=== PATIENT | male | born 1970 | race Caucasian/White ===

== ENCOUNTER 2017-06-15 05:49 | Inpatient (IN) | payer OTHER, MEDICAID ==
[2017-06-15] MEDS ORDERED: NS 1,000 ML IV ONE ×2 (06:14→06:24)
--- NOTE | 2017-06-15 06:20 | EDPHY ---
H & P Stated Complaint: cough/fever/ST x 3 weeks HPI/ROS: HPI CHIEF COMPLAINT: Cough, shortness of breath, fever x3 weeks HISTORY OF PRESENT ILLNESS: This patient is a 46-year-old male, history of fibromyalgia osteoporosis ankylosing spondylitis and GERD also takes chronic pain medicine he presents to the emergency room with 2-3 weeks of not feeling well however worse over the past 24-48 hours. He reports to me he has been more short of breath he has been coughing up yellow sputum. He noticed a fever at home T-max a 103degrees. He denies any chest pain. He does endorse back pain and bilateral hip pain worse with coughing. When he coughs extreme he does have post tussis emesis. His main complaint is muscle aches joint pain cough with yellow productive sputum sore throat. Upon arrival to the emergency room it is noted that he is dehydrated. Tachycardic. Febrile. And slightly hypoxic. Tachypneic. Past Medical History: Ankylosing spondylitis, osteoporosis, GERD, chronic pain , fibromyalgia Past Surgical History: No recent surgery Social History: Denies daily use drugs alcohol tobacco products. Family History: Noncontributory ROS REVIEW OF SYSTEMS: A comprehensive 10 point review of systems is otherwise negative aside from elements mentioned in the history of present illness. Exam Constitutional triage nursing summary reviewed, vital signs reviewed, awake/ alert. Vital signs noted. Abnormal. Eyes normal conjunctivae and sclera, EOMI, PERRLA. HENT posterior pharynx is erythematous but no significant exudate, dry, atraumatic, dry mucous membrane no epistaxis, neck supple/ no meningismus, no raccoon eyes. Respiratory clear to auscultation bilaterally, normal breath sounds, no respiratory distress, no wheezing. Cardiovascular tachycardic, regular rhythm, no murmur, no edema, distal pulses normal. Gastrointestinal soft, non-tender, no rebound, no guarding, normal bowel sounds, no distension, no pulsatile mass. Genitourinary no CVA tenderness. Musculoskeletal no midline vertebral tenderness, full range of motion, no calf swelling, no tenderness of extremities, no meningismus, good pulses, neurovascularly intact. Skin pink, warm, & dry, no rash, skin atraumatic. Neurologic awake, alert and oriented x 3, AAOx3, moves all 4 extremities equally, motor intact, sensory intact, CN II-XII intact, normal cerebellar, normal vision, normal speech. Psychiatric normal mood/affect. Heme/Lymph/Immune no lymphadenopathy. Differential Diagnosis: Includes but is not limited to in a particular order: Sepsis, bacteremia, dehydration, pneumonia, strep pharyngitis, influenza Medical Decision Making: Plan for this patient 2 L fluid bolus normal saline, full cardiac cath tech, blood cultures, lactic acid, strep test, influenza, chest x-ray two view to rule pneumonia. Re-evaluation: ED x-ray chest two view: This shows a right upper lobe and right middle lobe pneumonia. Dense consolidation. This explains his fever, hypoxia tachycardia. His blood work is pending at this time. I have ordered IV vancomycin IV Zosyn. Broad-spectrum antibiotics. Blood cultures. 2 L fluid bolus. Patient be admitted to the hospital for sepsis, pneumonia, tachycardia, fever, hypoxia. [id number]: Patient's chest x-ray two view reviewed. Dense consolidation right middle lobe and right upper lobe. Source: Patient - Personal History Current Tetanus/Diphtheria Vaccine: Yes - Medical/Surgical History Hx Asthma: No Hx Chronic Respiratory Disease: No Hx Diabetes: No Hx Cardiac Disease: No Hx Renal Disease: No Hx Cirrhosis: No Hx Alcoholism: No Hx HIV/AIDS: No Hx Splenectomy or Spleen Trauma: No Other PMH: PMHx: osteoporosis, vancolosing spondilitis, gerd, fibromyalgia, chronic pain. PSHx: hernia, adenoids, tonsillectomy, deviated septum repair, eyelid surgery - Social History Smoking Status: Former smoker Constitutional: Initial Vital Signs Temperature (C) 39.4 C H 06/15/17 05:55 Heart Rate 111 H 06/15/17 05:55 Respiratory Rate 24 H 06/15/17 05:55 Blood Pressure 113/63 06/15/17 05:55 O2 Sat (%) 91 L 06/15/17 05:55 O2 Delivery Mode Room Air Allergies/Adverse Reactions: duloxetine HCl [From Cymbalta] Allergy (Verified 06/15/17 09:22) Home Medications: Medication Instructions Recorded Cholecalciferol Vit D3 [Vitamin D3 1,000 units PO DAILY 06/15/17 (*)] Cyanocobalamin [Vitamin B12 1,000 mcg IM Q30D 06/15/17 1000MCG/ML (*)] Diazepam [Valium 10 MG (*)] 10 mg PO HS PRN 06/15/17 Esomeprazole Mag Trihydrate 40 mg PO BID PRN 06/15/17 [Nexium] HYDROcodone/APAP 10325 [[place] 1 tab PO Q6 PRN 06/15/17 10325 (*)] Herbals/Supplements -Info Only 1 ea PO DAILY 06/15/17 Secukinumab [Cosentyx Syringe] 150 mg SQ Q28D 06/15/17 celeCOXIB [Celebrex (*)] 200 mg PO DAILY 06/15/17 diphenhydrAMINE [Benadryl 50 MG 50 mg PO DAILY PRN 06/15/17 (*)] oxyCODONE IR [Oxycodone Ir (*)] 15 mg PO TID PRN 06/15/17 traZODone [traZODONE 50MG (*)] 50 - 150 mg PO HS PRN 06/15/17 Medical Decision Making - Data Points Laboratory Results: Laboratory Results 06/15/17 06:38 06/15/17 06:38 Microbiology Results: MICROBIOLOGY 06/15/17 06:38 Blood Blood Culture - Preliminary 06/15/17 06:40 Blood Blood Culture - Preliminary Medications Given: Hydrocodone Bitart/Acetaminophen ([place] 10/325) 1 tab PO Q4 PRN PRN Reason: Pain, Breakthrough Stop: 06/25/17 13:23 Last Admin: 06/16/17 18:24 Dose: 1 tab Celecoxib (Celebrex) 200 mg PO DAILY [facility] Stop: 12/12/17 13:29 Last Admin: 06/16/17 10:01 Dose: 200 mg Cholecalciferol (Vitamin D) 1,000 units PO DAILY [facility] Stop: 12/12/17 13:29 Last Admin: 06/16/17 08:21 Dose: 1,000 units Diazepam (Valium) 10 mg PO HS PRN PRN Reason: sleep/anxiety Stop: 12/12/17 13:23 Last Admin: 06/15/17 22:31 Dose: 10 mg Diphenhydramine HCl (Benadryl) 50 mg PO DAILY PRN PRN Reason: allergies Stop: 12/12/17 13:23 Last Admin: 06/15/17 22:49 Dose: 50 mg Guaifenesin (Mucinex) 1,200 mg PO BID [facility] Stop: 12/12/17 08:29 Last Admin: 06/16/17 21:39 Dose: 1,200 mg Ceftriaxone Sodium/Dextrose (Rocephin 1 Gm (Premix)) 50 mls @ 100 mls/hr IV DAILY [facility] PRN Reason: Protocol Stop: 07/15/17 16:29 Last Admin: 06/16/17 09:54 Dose: 50 mls Metronidazole/Sodium Chloride (Flagyl 500 Mg (Premix)) 100 mls @ 100 mls/hr IV Q8HRS [facility] PRN Reason: Protocol Stop: 07/15/17 16:14 Last Admin: 06/16/17 21:38 Dose: 100 mls Oxycodone HCl (Oxycodone Ir) 15 mg PO TID PRN PRN Reason: Pain, Severe Stop: 06/25/17 13:23 Last Admin: 06/16/17 21:38 Dose: 15 mg Pantoprazole Sodium (Protonix) 40 mg PO BID PRN PRN Reason: Reflux Stop: 12/12/17 13:29 Last Admin: 06/15/17 20:26 Dose: 40 mg Discontinued Medications Acetaminophen (Tylenol) 1,000 mg PO EDNOW ONE Stop: 06/15/17 06:30 Last Admin: 06/15/17 07:18 Dose: Not Given Hydrocodone Bitart/Acetaminophen ([place] 10/325) 1 tab PO Q6 PRN PRN Reason: Pain, Breakthrough Stop: 06/25/17 13:23 Last Admin: 06/16/17 14:33 Dose: 1 tab Enoxaparin Sodium (Lovenox) 40 mg SC DAILY [facility] Stop: 12/12/17 08:59 Last Admin: 06/15/17 10:18 Dose: 40 mg Hydromorphone HCl (Dilaudid) 1 mg IVP EDNOW ONE Stop: 06/15/17 06:25 Last Admin: 06/15/17 06:45 Dose: 1 mg Sodium Chloride (Ns) 1,000 mls @ 0 mls/hr IV EDNOW ONE; Wide Open PRN Reason: Protocol Stop: 06/15/17 06:15 Last Admin: 06/15/17 06:46 Dose: 1,000 mls Sodium Chloride (Ns) 1,000 mls @ 0 mls/hr IV ONCE ONE PRN Reason: Wide Open Stop: 06/15/17 06:25 Last Admin: 06/15/17 07:30 Dose: 1,000 mls Vancomycin/Sodium Chloride (Vancomycin 1 Gm (Premix)) 250 mls @ 250 mls/hr IV EDNOW ONE PRN Reason: Protocol Stop: 06/15/17 07:34 Last Admin: 06/15/17 08:14 Dose: 250 mls Piperacillin/Tazobactam/Dextrose (Zosyn (Premix)) 100 mls @ 200 mls/hr IV EDNOW ONE PRN Reason: Protocol Stop: 06/15/17 07:04 Last Admin: 06/15/17 07:14 Dose: 100 mls Sodium Chloride (Ns) 1,000 mls @ 150 mls/hr IV CONT [facility] Stop: 12/12/17 08:29 Last Admin: 06/16/17 17:36 Dose: 1,000 mls Ibuprofen (Motrin) 600 mg PO EDNOW ONE Stop: 06/15/17 06:39 Last Admin: 06/15/17 06:48 Dose: 600 mg Departure - Departure Disposition: [facility] Inpatient Acute Clinical Impression: Pneumonia Qualifiers: Pneumonia type: due to unspecified organism Laterality: right Lung location: middle lobe of lung Qualified Code(s): J18.1 - Lobar pneumonia, unspecified organism Condition: Serious
[2017-06-15] MEDS ORDERED: HYDROmorphONE/DILAUDID 1 MG/ML INJ IVP ONE (06:24)
[2017-06-15] MEDS ORDERED: ACETAMINOPHEN 500 MG TAB PO ONE (06:29)
[2017-06-15] MEDS ORDERED: VANCOMYCIN HCL/NORMAL SALINE 250 ML IV ONE (06:35)
[2017-06-15] MEDS ORDERED: PIPERACILLIN/TAZO 4.5 GM/DEX 100 ML IV ONE (06:35)
[2017-06-15] MEDS ORDERED: IBUPROFEN 600 MG TAB PO ONE (06:38)
[2017-06-15 06:55] LABS: ADD DIFF? YES; ADD MORPH? NO; ATYPICAL LYMPHOCYTE FLAG 10 (0-99); FRAGMENT RBC FLAG 0 (0-99); HEMATOCRIT 35.8 % (40.0-51.0); LEFT SHIFT FLG 10 (0-99); LIPEMIA HEMOLYSIS FLAG 80 (0-99); MEAN CELL HEMOGLOBIN 29.1 pg (27.9-34.1); MEAN CELL HEMOGLOBIN CONCENTR. 33.5 g/dL (32.4-36.7); MEAN CELL VOLUME 86.7 fL (81.5-99.8); MEAN PLATELET VOLUME 9.9 fL (8.7-11.7); PLATELET CLUMPS FLAG 0 (0-99); PLATELET COUNT 737 10^3/uL (150-400); RED BLOOD CELL COUNT 4.13 10^6/uL (4.40-6.38); RED CELL DISTRIBUTION WIDTH 13.9 % (11.5-15.2)
[2017-06-15 06:59] LABS: ADD SCAN? NO
[2017-06-15 07:28] LABS: PLATELET ESTIMATE INCREASED (ADEQ)
[2017-06-15 07:29] LABS: ANION GAP 13 mEq/L (8-16); CALCIUM 9.1 mg/dL (8.5-10.4); CARBON DIOXIDE 21 mEq/l (22-31); CHLORIDE 101 mEq/L (97-110); CREATININE 0.7 mg/dL (0.7-1.3); GLOMERULAR FILTRATION RATE > 60; GLUCOSE 109 mg/dL (70-100); POTASSIUM 4.1 mEq/L (3.5-5.2); SODIUM 135 mEq/L (134-144)
[2017-06-15] MEDS ORDERED: IOPAMIDOL (ISOVUE-300) 100 ML BTL ONE (08:22)
[2017-06-15] MEDS ORDERED: ONDANSETRON DISINTEGRATING 4 MG TAB PO PRN (08:23)
[2017-06-15] MEDS ORDERED: ACETAMINOPHEN 325 MG TAB PO PRN (08:23)
[2017-06-15] MEDS ORDERED: ONDANSETRON 4 MG/2 ML VIAL IVP PRN (08:23)
[2017-06-15] MEDS ORDERED: guaiFENesin/CODEINE PHOS 10 ML UDCUP PO PRN (08:25)
[2017-06-15] MEDS ORDERED: ENOXAPARIN 40 MG/0.4 ML SYR SC SCH (09:00)
[2017-06-15] MEDS: guaiFENesin 600 MG TAB.ER PO SCH ×3 (10:19→20:25)
[2017-06-15] MEDS ORDERED: NON-FORMULARY NEW DRUG (Esomeprazole Mag Trihydrate [Nexium] 40 MG) PO PRN (13:24)
[2017-06-15] MEDS ORDERED: diphenhydrAMINE 50 MG CAP PO PRN (13:24)
[2017-06-15] MEDS ORDERED: traZODone 50 MG TAB PO PRN (13:24)
[2017-06-15] MEDS ORDERED: DIAZEPAM 10 MG TAB PO PRN (13:24)
[2017-06-15] MEDS: HYDROCODONE/APAP 10/325 TAB PO PRN ×2 (13:53→20:25)
[2017-06-15] MEDS: CHOLECALCIFEROL VIT D3 1,000 UNITS TAB PO SCH (13:54)
--- NOTE | 2017-06-15 14:42 | PDGENHP ---
History and Physical - Chief Complaint Acute cough - History of Present Illness Primary care provider: Dr. Shawn Feng HPI: 46-year-old male presents with acute cough characterized as productive with yellow sputum and associated with shortness of breath myalgias. He reports onset of symptoms weeks ago, and acute worsening over the past 24-48 hours. His fever has been documented as 103 degrees at home. He reports several episodes of nonbloody emesis, exacerbated by his coughing. He has presented to urgent care, and received Tylenol, but no imaging or antibiotics. Reports that over the last 6 weeks he has experienced an approximately 15 lb weight loss, unintentional. His bowel movements have otherwise been normal, with 1 episode of diarrhea, without any change in color or consistency. History Information - Allergies/Home Medication List Allergies/Adverse Reactions: duloxetine HCl [From Cymbalta] Allergy (Verified 06/15/17 09:22) Home Medications: Cholecalciferol Vit D3 [Vitamin D3 (*)] 1,000 units PO DAILY 06/15/17 [Last Taken Unknown] Cyanocobalamin [Vitamin B12 1000MCG/ML (*)] 1,000 mcg IM Q30D 06/15/17 [Last Taken 05/31/17] Diazepam [Valium 10 MG (*)] 10 mg PO HS PRN 06/15/17 [Last Taken Unknown] Esomeprazole Mag Trihydrate [Nexium] 40 mg PO BID PRN 06/15/17 [Last Taken 06/14] HYDROcodone/APAP 10/325 [[place] 10/325 (*)] 1 tab PO Q6 PRN 06/15/17 [Last Taken 06/14/17] Herbals/Supplements -Info Only 1 ea PO DAILY 06/15/17 [Last Taken Unknown] Secukinumab [Cosentyx Syringe] 150 mg SQ Q28D 06/15/17 [Last Taken 05/23/17] celeCOXIB [Celebrex (*)] 200 mg PO DAILY 06/15/17 [Last Taken 06/14/17] diphenhydrAMINE [Benadryl 50 MG (*)] 50 mg PO DAILY PRN 06/15/17 [Last Taken Unknown] oxyCODONE IR [Oxycodone Ir (*)] 15 mg PO TID PRN 06/15/17 [Last Taken Unknown] traZODone [traZODONE 50MG (*)] 50 - 150 mg PO HS PRN 06/15/17 [Last Taken Unknown] I have personally reviewed and updated: family history, medical history, social history, surgical history - Past Medical History Additional medical history: Fibromyalgia. Osteoporosis with ankylosing spondylitis. Chronic pain with continuous opiate dependency. Gastroesophageal reflux disease. Pneumonia approximately 2 years ago - Surgical History Additional surgical history: No prior chest surgeries - Family History Additional family history: No family history of pulmonary issues, father did recently have venous thromboembolism secondary to a DVT - Social History Smoking Status: Former smoker Alcohol Use: None Drug Use: None Additional social history: Independent in his ADLs Review of Systems Review of Systems: ROS: 10pt was reviewed & negative except for what was stated in HPI & below Constitutional: Reports: fever, malaise, weight loss Respiratory: Reports: cough, shortness of breath Muscolosketal: Reports: muscle pain Physical Exam Physical Exam: Temp Pulse Resp BP Pulse Ox 37.1 C 84 19 111/61 94 06/15/17 09:59 06/15/17 09:59 06/15/17 09:59 06/15/17 09:59 06/15/17 09:59 Constitutional: no apparent distress, not in pain, chronically ill appearing, No uncomfortable Eyes: PERRL, anicteric sclera, EOMI Ears, Nose, Mouth, Throat: moist mucous membranes, hearing normal, ears appear normal, no oral mucosal ulcers Cardiovascular: regular rate and rhythym, no murmur, rub, or gallop, No edema Respiratory: reduced air movement (Right mid posterior upper segment with positive egophony), rhonchi (Right-sided posteriorly), No expiratory wheeze, No bronchial breath sounds Gastrointestinal: normoactive bowel sounds, soft, non-tender abdomen, no palpable masses Skin: warm, normal color, no rashes or abrasions, no fluctuance, no induration, No mottled Neurologic: AAOx3, sensation intact bilaterally, No weakness (Motor strength 5/ 5 bilaterally) Psychiatric: not anxious, not encephalopathic, flat affect, No agitated Lymph, Heme, Immunologic: other (Palpable 1 cm submandibular lymph nodes without any tenderness, no posterior cervical lymphadenopathy, no supraclavicular lymphadenopathy) Lab Data & Imaging Review 06/15/17 06:38 06/15/17 06:38 WBC 30.10 10^3/uL (3.80-9.50) H 06/15/17 06:38 RBC 4.13 10^6/uL (4.40-6.38) L 06/15/17 06:38 Hgb 12.0 g/dL (13.7-17.5) L 06/15/17 06:38 Hct 35.8 % (40.0-51.0) L 06/15/17 06:38 MCV 86.7 fL (81.5-99.8) 06/15/17 06:38 MCH 29.1 pg (27.9-34.1) 06/15/17 06:38 MCHC 33.5 g/dL (32.4-36.7) 06/15/17 06:38 RDW 13.9 % (11.5-15.2) 06/15/17 06:38 Plt Count 737 10^3/uL (150-400) H 06/15/17 06:38 MPV 9.9 fL (8.7-11.7) 06/15/17 06:38 Neut % (Auto) Not Reported 06/15/17 06:38 Lymph % (Auto) Not Reported 06/15/17 06:38 [place] % (Auto) Not Reported 06/15/17 06:38 Eos % (Auto) Not Reported 06/15/17 06:38 Baso % (Auto) Not Reported 06/15/17 06:38 Nucleat RBC Rel Count 0.0 % (0.0-0.2) 06/15/17 06:38 Absolute Neuts (auto) Not Reported 06/15/17 06:38 Absolute Lymphs (auto) Not Reported 06/15/17 06:38 Absolute Monos (auto) Not Reported 06/15/17 06:38 Absolute Eos (auto) Not Reported 06/15/17 06:38 Absolute Basos (auto) Not Reported 06/15/17 06:38 Absolute Nucleated RBC 0.00 10^3/uL (0-0.01) 06/15/17 06:38 Immature Gran % Not Reported 06/15/17 06:38 Seg Neutrophils % 83 % 06/15/17 06:38 Band Neutrophils % 2 % 06/15/17 06:38 Lymphocytes % 6 % 06/15/17 06:38 Monocytes % 8 % 06/15/17 06:38 Eosinophils % 1 % 06/15/17 06:38 Immature Gran # Not Reported 06/15/17 06:38 Absolute Seg Neuts 24.98 10^/uL (1.70-6.50) H 06/15/17 06:38 Absolute Band Neuts 0.60 10^3/uL (0.00-0.70) 06/15/17 06:38 Absolute Lymphocytes 1.81 10^3/uL (1.00-3.00) 06/15/17 06:38 Absolute Monocytes 2.41 10^3/uL (0.30-0.80) H 06/15/17 06:38 Absolute Eosinophils 0.30 10^3/uL (0.03-0.40) 06/15/17 06:38 Platelet Estimate INCREASED (ADEQ) H 06/15/17 06:38 Smear Review By Chloe AVALOS MD 06/15/17 06:38 VBG Lactic Acid 0.9 mmol/L (0.7-2.1) 06/15/17 06:38 Sodium 135 mEq/L (134-144) 06/15/17 06:38 Potassium 4.1 mEq/L (3.5-5.2) 06/15/17 06:38 Chloride 101 mEq/L (97-110) 06/15/17 06:38 Carbon Dioxide 21 mEq/l (22-31) L 06/15/17 06:38 Anion Gap 13 mEq/L (8-16) 06/15/17 06:38 BUN 12 mg/dL (7-23) 06/15/17 06:38 Creatinine 0.7 mg/dL (0.7-1.3) 06/15/17 06:38 Estimated GFR > 60 06/15/17 06:38 Glucose 109 mg/dL (70-100) H 06/15/17 06:38 Calcium 9.1 mg/dL (8.5-10.4) 06/15/17 06:38 Influenza A & B (PCR) NEGATIVE FOR FLU (NEGATIVE) 06/15/17 10:37 Visualized and Interpreted imaging results: Yes Interpretation: Chest CT demonstrating right upper lobe consolidation with either a mass or abscess, and surrounding dense airspace disease Assessment & Plan Assessment: 46-year-old male presents with acute pneumonia in the setting of possible pulmonary abscess Plan: 1. Pneumonia. Acute, new problem this provider, further workup indicated. Unclear whether patient developed pneumonia and then resulting pulmonary abscess , or whether he has underlying pulmonary malignancy and subsequent postobstructive pneumonia -he has received IV ceftriaxone and azithromycin in the emergency department, will continue -will tailor antibiotics under the guidance of Infectious Disease -sputum culture sent, blood culture sent, group a strep pending, urine strep pending 2. Possible pulmonary abscess. Evidenced by chest CT findings with air level, concern for abscess, with white blood cell count [id number] -patient has known bronchiectasis in the right lower lobe with known pulmonary nodules in the right lower lobe and right upper lobe, per review of outside records including 05/13/[address], placing him at possible risk for underlying malignancy -contacted Dr. Nelson Guadarrama, getting surgical evaluation for biopsy and aspirate, unclear whether we will do this via VATS versus Interventional Radiology -will make NPO after midnight -discussed with Dr. Ana M Ibanez, appreciate consultation 3. Chronic pain with continuous opiate dependency. Continue patient's home pain medications for ankylosing spondylitis and fibromyalgia Diet. Regular, NPO after midnight Prophylaxis. High risk patient, SCDs, hold pharmacologic prophylaxis given possible biopsy Code. Full per patient, the patient does not wish to have any person as his medical power of associate attorney, he wishes for his medical team to follow hospital policies regarding proxy if he is unable to communicate his medical decisions Disposition. Anticipated discharge uncertain this time, anticipated length stay greater than 48 hours warranting inpatient hospitalization for acute pneumonia and possible pulmonary abscess requiring surgical intervention as outlined above. I have discussed patient's presentation with Darline Hedrick, hospitalist provider, she has signed out this patient for me for evaluation.
[2017-06-15] MEDS: NS 1,000 ML IV SCH (16:44)
[2017-06-15] MEDS: PANTOPRAZOLE SODIUM 40 MG TAB PO PRN (20:26)
--- NOTE | 2017-06-15 21:32 | GCON ---
[f rep st] CONSULTATION INFECTIOUS DISEASE CONSULTATION DATE OF CONSULTATION: 06/15/2017 REASON FOR CONSULTATION: Management and evaluation of cavitary pneumonia. HISTORY OF PRESENT ILLNESS: A 46-year-old male with a past medical history of ankylosing spondylitis, currently on Cosentyx, who was in his usual state of health until 3-6 weeks ago when he developed progressive shortness of breath, cough, yellow sputum with occasional hemoptysis. His shortness of breath and cough became acutely worse and patient presented to the emergency room for further evaluation. In the emergency room, patient was found to have relatively stable hemodynamics, but imaging revealed a right upper lobe consolidation with associated cavitary lesion, notably severe consolidation. 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 This occurred approximately 16 years ago, and patient reports receiving 6 months of isoniazid. The patient was getting testing for initiation of therapy for Enbrel at the time. In addition, patient has not had any recent travel. Last travel was in 2000 to [place]. He grew up in [facility] and moved to [place] in 1997. He currently has no pets. He does not use hot tubs. He does not use alcohol and has been on a stable narcotics dose. He has not seen a dentist in over 16 years, but denies any specific tooth pain. REVIEW OF SYSTEMS: A complete 10-point review of systems was performed and is negative except as mentioned in the HPI or below. The patient has had a significant decreased appetite and a 10-15 pounds weight loss, approximately over 3 weeks. He has been having drenching night sweats in which he has to change his clothes. No gastrointestinal symptoms. No headache. No dental pain. No rash. ALLERGIES: Cymbalta makes him aggressive. MEDICATIONS: The patient received a dose of IV Zosyn and vancomycin in the emergency room. HOME MEDICATIONS: Include Cosentyx, last dose was the 12th of last month, celecoxib, Benadryl, [place], Nexium, Valium, B12, vitamin D3, oxycodone IR and trazodone. PAST MEDICAL HISTORY: Fibromyalgia, ankylosing spondylitis, osteoporosis, chronic pain with continuous opiate dependency, gastroesophageal reflux disease , pneumonia in the winter of 2014. FAMILY HISTORY: Denies family history of tuberculosis or other pulmonary diseases. Family history of DVT. SOCIAL HISTORY: The patient is single. Was living in [place], but recently moved back to [place]. He is a former smoker. No alcohol or drug use. PHYSICAL EXAM: VITAL SIGNS: Temperature 37, pulse 84, respiratory rate 19, blood pressure 111/61, pulse ox 94% on room air. GENERAL: This is a chronically ill-appearing male, sitting up in bed, conversational, no acute distress. HEENT: Pupils are reactive bilaterally. Extraocular muscles were intact. No conjunctival hemorrhages. No jaundice. Moist mucous membranes. No oral ulcerations or exudates. Fair dentition. No obvious dental caries. NECK: Patient had no notable lymphadenopathy. CARDIOVASCULAR: Regular rate and rhythm. No murmurs. CHEST: Patient without accessory muscle use. He had decreased breath sounds and crackles in the right mid lung field. No wheeze. GI: Abdomen was soft, nontender. Bowel sounds are present. No palpable mass. SKIN: No rash. NEUROLOGICAL: He is alert and oriented x4. No weakness. PSYCHIATRIC: He was cooperative, conversational. LABORATORY DATA: White count is 30,000, hematocrit 35, platelets are 737, creatinine 0.7. The patient had 83% neutrophils. Chest CT showed a dense right upper lobe consolidation with cavitation. Micro blood cultures, sputum culture, and sputum AFB are all pending. Influenza PCR was negative. IMPRESSION: This is a 46-year-old male with chronic immune compromise due to Cosentyx for ankylosing spondylitis and a remote history of a positive PPD status post INH, who presents with subacute pneumonia with severe radiologic abnormalities and marked leukocytosis, but stable vital signs with normal oxygenation. Additional laboratory findings included thrombocytosis also likely related to subacute infection. Pneumonia with possible abscess. Patient with minimal dental care - although no obvious dental caries but this certainly puts him at risk for aspiration pneumonia and chronic anaerobic lung infection. Also could consider other etiologies such as staph necrotizing pneumonia with abscess. With underlying immune compromise, certainly other etiologies such as mycobacteria including tuberculosis and fungal etiologies within the realm of consideration. We will continue to follow up on sputum cultures and appreciate Pulmonary involvement for bronchoscopy tomorrow when AFB , fungal, and standard cultures will be collected. Additionally, could consider underlying malignancy, although clinical appearance radiologically makes this seem unlikely. Dr Salazar suggested sending ANCAs to evaluate for underlying vasculitis. TIME: 75 minutes with greater than 50% time spent with education and counseling of the patient regarding differential diagnosis, coordination of care with Dr. Lee and Dr. Salazar. We will continue to follow this patient on a daily basis. Thank you for this consultation. /[id number]/MODL RAYMON
--- NOTE | 2017-06-15 21:53 | SOAPPROG ---
SOAP Progress Note Assessment/Plan: Assessment: ASKED TO SEE 46-YEAR-OLD MALE WITH RIGHT UPPER LOBE MASS LESION WHICH MAY BE NECROTIC PNEUMONIA. HE HAS BEEN HAVING PAIN FEVER AND CHILLS ON THAT SIDE AND COUGHING UP DISCOLORED FLUID. HE IS A SMOKER BUT DENIES ANY WEIGHT LOSS OR HEMOPTYSIS CHEST X-RAY AND CT SCAN REVEAL A SIGNIFICANT INFILTRATE THE RIGHT LOBE WITH PROBABLE NECROSIS AND SOME POSSIBLE NEED MEDIASTINAL ADENOPATHY PATIENT IS ALERT AND ORIENTED BUT IN SOME DISCOMFORT CHEST IS SYMMETRICAL BUT WAS ROWS IN THE RIGHT UPPER LOBE CARDIAC EXAM WAS REGULAR RHYTHM ABDOMEN IS SOFT NONTENDER EXTREMITIES REVEAL FULL RANGE OF MOTION FULL PULSES NO CLUBBING IMPRESSION IS RIGHT UPPER LOBE PNEUMONIA WITH POSSIBLE NECROSIS/NEED TO RULE OUT OBSTRUCTIVE THE ETIOLOGY SUCH CARCINOMA Plan: WOULD RECOMMEND BRONCHOSCOPY FOR DIAGNOSIS AND CULTURES AND/OR BIOPSIES IF ENDOBRONCHIAL LESIONS ARE SEEN/WILL FOLLOW WITH YOU BUT I THINK THE DIAGNOSIS WILL BE MADE WITH BRONCHOSCOPY 06/15/17 21:49 Objective: Vital Signs Temp Pulse Resp BP Pulse Ox 36.8 C 89 16 115/64 96 06/15/17 20:57 06/15/17 20:57 06/15/17 20:57 06/15/17 20:57 06/15/17 20:57 Microbiology 06/15/17 12:00 - Final Sputum, Expectorated 06/14/17 06/15/17 06/16/17 05:59 05:59 05:59 Intake Total 3950 Balance 3950 ICD10 Worksheet Patient Problems: Problems Problem Status Onset Pneumonia Acute
[2017-06-15] MEDS: oxyCODONE IR 15 MG TAB PO PRN (22:28)
[2017-06-15] MEDS ORDERED: diphenhydrAMINE 25 MG CAP PO PRN (22:30)
[2017-06-15] MEDS: DIAZEPAM 5 MG TAB PO PRN (22:31)
[2017-06-16] MEDS: NS 1,000 ML IV SCH ×3 (02:03→17:36)
[2017-06-16] MEDS: oxyCODONE IR 15 MG TAB PO PRN ×2 (02:03→21:38)
[2017-06-16 05:29] LABS: ADD DIFF? YES; ADD MORPH? NO; ADD SCAN? NO; ATYPICAL LYMPHOCYTE FLAG 10 (0-99); FRAGMENT RBC FLAG 0 (0-99); HEMATOCRIT 32.1 % (40.0-51.0); HEMOGLOBIN 10.2 g/dL (13.7-17.5); LEFT SHIFT FLG 10 (0-99); LIPEMIA HEMOLYSIS FLAG 80 (0-99); MEAN CELL HEMOGLOBIN 28.5 pg (27.9-34.1); MEAN CELL HEMOGLOBIN CONCENTR. 31.8 g/dL (32.4-36.7); MEAN CELL VOLUME 89.7 fL (81.5-99.8); MEAN PLATELET VOLUME 10.4 fL (8.7-11.7); PLATELET CLUMPS FLAG 10 (0-99); PLATELET COUNT 615 10^3/uL (150-400); RED BLOOD CELL COUNT 3.58 10^6/uL (4.40-6.38); RED CELL DISTRIBUTION WIDTH 13.8 % (11.5-15.2)
[2017-06-16 05:51] LABS: ALANINE AMINOTRANSFERASE 38 IU/L (21-72); ALBUMIN 2.4 g/dL (3.5-5.0); ALKALINE PHOSPHATASE 131 IU/L (38-126); ANION GAP 9 mEq/L (8-16); ASPARTATE AMINOTRANSFERASE 27 IU/L (17-59); BILIRUBIN,TOTAL 0.3 mg/dL (0.1-1.4); CALCIUM 8.2 mg/dL (8.5-10.4); CARBON DIOXIDE 23 mEq/l (22-31); CHLORIDE 105 mEq/L (97-110); CREATININE 0.6 mg/dL (0.7-1.3); GLOMERULAR FILTRATION RATE > 60; GLUCOSE 94 mg/dL (70-100); POTASSIUM 4.2 mEq/L (3.5-5.2); SODIUM 137 mEq/L (134-144); TOTAL PROTEIN 5.4 g/dL (6.3-8.2)
[2017-06-16 06:40] LABS: PLATELET ESTIMATE INCREASED (ADEQ); POLYCHROMASIA 1+
[2017-06-16] MEDS: guaiFENesin 600 MG TAB.ER PO SCH ×2 (08:21→21:39)
[2017-06-16] MEDS: CHOLECALCIFEROL VIT D3 1,000 UNITS TAB PO SCH (08:21)
[2017-06-16] MEDS: HYDROCODONE/APAP 10/325 TAB PO PRN ×3 (08:30→18:24)
[2017-06-16] MEDS ORDERED: Herbals/Supplements -Info Only PO SCH (09:00)
--- NOTE | 2017-06-16 09:34 | PCMIDPN ---
Assessment/Plan: ADDENDUM: Talked to health department and reviewed case (they were notified of r/o TB via infection prevention). 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 Suggested [facility] Test TB for more rapid identification or exclusion of TB. Called lab and added on to sputum in lab, will be sent today with hopeful turnaround 24 hours. We should delay bronchoscopy until [facility] TB is back. Called Dr. Navarro and cancelled test. Objective: Vital Signs Temp Pulse Resp BP Pulse Ox 36.6 C 94 18 129/70 H 95 06/16/17 08:00 06/16/17 08:00 06/16/17 08:00 06/16/17 08:00 06/16/17 08:00 Microbiology 06/15/17 12:00 - Final Sputum, Expectorated Laboratory Results 06/16/17 03:39 06/16/17 03:39 06/15/17 06/16/17 06/17/17 05:59 05:59 05:59 Intake Total 6400 Balance 6400 ICD10 Worksheet Patient Problems: Problems Problem Status Onset Pneumonia Acute
--- NOTE | 2017-06-16 11:29 | GCON ---
[f rep st] CONSULTATION CHEST CONSULTATION REASON FOR ADMISSION: Dyspnea, cough, and a right upper lobe mass. HISTORY OF PRESENT ILLNESS: The patient is a 46-year-old white male with a past medical history incl uding fibromyalgia, osteoporosis, ankylosing spondylitis, chronic pain, gastroesophageal reflux disea se. He presents with a 3-week history of worsening malaise. He is also having fevers up to 103. He admits to a cough productive of yellowish sputum. He had some hemoptysis earlier, but this has reso lved. There is no chest pain, pleuritic-type chest pain or anginal equivalent. He is breathless onl y with exertion. He has had some weight loss and some diarrhea. PAST MEDICAL HISTORY: As above. ALLERGIES: Duloxetine. SOCIAL HISTORY: Previous smoker many years ago, none for many years. No significant alcohol use. W ork history: He is disabled. MEDICATIONS: At home include vitamin D3, Valium, Nexium, Vermilion, Cosentyx, Celebrex, Benadryl, oxycod one, and trazodone. PHYSICAL EXAM: VITAL SIGNS: Blood pressure is 129/70. Pulse is 94, respirations 18, temperature 36 .6, oxygen saturation 95% on room air. GENERAL: He is a thin, somewhat malnourished 46-year-old whi te male who is resting comfortably and not on supplemental oxygen. HEENT: Eyes: PERRL, EOMI. Thro at shows no erythema or tonsillar hypertrophy. NECK: Supple. There is no cervical adenopathy. HEA RT: Regular rate and rhythm, without murmurs, rubs, or gallops. LUNGS: Diminished breath sounds, b ut no wheeze. ABDOMEN: Soft, nontender. Bowel sounds are present in all 4 quadrants. EXTREMITIES: No clubbing, cyanosis, or edema. LABORATORY DATA: White count is 23.5, hemoglobin 10, hematocrit 32, platelet count 615. Sodium 137, potassium 4.2, chloride 105, CO2 23, BUN 8, creatinine 0.6. Glucose is 94. CT scan of the chest sh ows a right upper lobe mass-like area. This is either severe pneumonia versus mass. RECOMMENDATIONS: Will perform fiberoptic bronchoscopy as soon as possible. /[id number]/MODL
--- NOTE | 2017-06-16 11:53 | ASMTCASEMG ---
Living Arrangements What is your living Answers: Alone arrangement? Who do you live with? Type Of Residence What kind of residence do Answers: House you live in? Discharge Plan Comments Coordination Status Comments Notes: Chart reviewed, pt is a 46 y/o man admitted w/ pneumonia. CM spoke w/ SABINA Yoo. Pt will most likely discharge independent when he is medically stable w/ supportive family in the community. CM available for changes. Date Signed: 06/16/2017 11:53 AM Electronically Signed By:HOANG Zee
--- NOTE | 2017-06-16 13:11 | PDMN ---
Medical Necessity Medical necessity: est los >2 mn for PNA & possible abscess requiring surgical intervention & IV abx per H&P & Order 06/15/17
--- NOTE | 2017-06-16 14:48 | PCMIDPN ---
Assessment/Plan: Assessment: Right upper lobe pneumonia with abscess-prior it latent TB diagnosis with 9 months of INH many years ago. Cavitary lesion now raises questions of whether TB has recurred. Gene expert test on sputum sent to rule out TB. Hopefully we will get this back in the next 24 hours. In the meantime we will continue empiric coverage with ceftriaxone and metronidazole. Plan: 1. Continue both ceftriaxone and metronidazole. 2. Follow up on TB testing. 3. Follow clinical course and respiratory status improvement. 06/16/17 14:49 Subjective: Patient is resting comfortably in his hospital bed. He states that his respiratory symptoms of cough and shortness of breath are much improved. Notes also that the pain in his right chest is decreased. No fevers since yesterday. Objective: Ceftriaxone # 2 Flagyl # 1 Vital Signs Temp Pulse Resp BP Pulse Ox 36.6 C 94 18 129/70 H 95 06/16/17 08:00 06/16/17 08:00 06/16/17 08:00 06/16/17 08:00 06/16/17 08:00 Microbiology 06/15/17 18:15 Mycobacterial Smear (REGINALDO) - Final Other - Other 06/15/17 12:00 - Final Sputum, Expectorated Laboratory Results 06/16/17 03:39 06/16/17 03:39 06/15/17 06/16/17 06/17/17 05:59 05:59 05:59 Intake Total 6400 Balance 6400 - Physical Exam General Appearance: WD/WN, alert, no apparent distress, non-toxic Respiratory: lungs clear, normal breath sounds, No respiratory distress, No crackles, No stridor, No bronchial breath sounds, No coarse breath sounds Cardiac/Chest: regular rate, rhythm, No tachycardia Extremities: non-tender, normal inspection Skin: normal color, warm/dry, No rash Neuro/Psych: alert, normal mood/affect, oriented x 3 ICD10 Worksheet Patient Problems: Problems Problem Status Onset Pneumonia Acute
--- NOTE | 2017-06-16 17:53 | HOSPPROG ---
Hospitalist Progress Note Assessment/Plan: Assessment: 46-year-old male presents with acute pneumonia in the setting of possible pulmonary abscess Plan: 1. Pneumonia. Acute, RUL w/ possible pulmonary abscess - ruling out TB given past tx - d/w Dr. Navarro, we agree on holding bronch until ruled out - cont Abx, D#2 CTX, D#1 Metronidazole, appreciate ongoing ID consultation - may require IR drainage for complete resolution - cont monitor CBC - GBS on sputum Cx 2. Chronic pain with continuous opiate dependency. Continue patient's home pain medications for ankylosing spondylitis and fibromyalgia Diet. Regular Prophylaxis. High risk patient, SCDs, hold pharmacologic prophylaxis given possible bronch Code. Full per patient, the patient does not wish to have any person as his medical power of deputy attorney general, he wishes for his medical team to follow hospital policies regarding proxy if he is unable to communicate his medical decisions Disposition. Anticipated discharge uncertain this time, monitor for improvement of above Subjective: patient w/ improving SOB/cough Objective: Vital Signs Temp Pulse Resp BP Pulse Ox 36.8 C 88 16 116/60 95 06/16/17 16:00 06/16/17 16:00 06/16/17 16:00 06/16/17 16:00 06/16/17 16:00 Microbiology 06/15/17 18:15 Mycobacterial Smear (REGINALDO) - Final Other - Other 06/15/17 12:00 - Final Sputum, Expectorated Laboratory Results 06/16/17 03:39 06/16/17 03:39 06/15/17 06/16/17 06/17/17 05:59 05:59 05:59 Intake Total 6400 3650 Balance 6400 3650 - Physical Exam Constitutional: no apparent distress, not in pain, chronically ill appearing, No uncomfortable Cardiovascular: regular rate and rhythym, no murmur, rub, or gallop, No edema Respiratory: reduced air movement (R upper post seg), No expiratory wheeze, No inspiratory crackles, No bronchial breath sounds Gastrointestinal: normoactive bowel sounds, soft, non-tender abdomen, no palpable masses, No distension Neurologic: AAOx3, sensation intact bilaterally, No facial droop Psychiatric: not anxious, not encephalopathic, thought process linear, flat affect, No agitated ICD10 Worksheet Patient Problems: Problems Problem Status Onset Pneumonia Acute
[2017-06-17] MEDS: HYDROCODONE/APAP 10/325 TAB PO PRN ×5 (00:33→23:12)
[2017-06-17] MEDS: DIAZEPAM 5 MG TAB PO PRN ×2 (00:33→21:47)
[2017-06-17] MEDS: oxyCODONE IR 15 MG TAB PO PRN ×2 (03:17→20:45)
[2017-06-17 04:45] LABS: ADD DIFF? YES; ADD MORPH? NO; ADD SCAN? NO; ATYPICAL LYMPHOCYTE FLAG 20 (0-99); FRAGMENT RBC FLAG 0 (0-99); HEMATOCRIT 35.3 % (40.0-51.0); HEMOGLOBIN 11.4 g/dL (13.7-17.5); LEFT SHIFT FLG 10 (0-99); LIPEMIA HEMOLYSIS FLAG 80 (0-99); MEAN CELL HEMOGLOBIN 29.4 pg (27.9-34.1); MEAN CELL HEMOGLOBIN CONCENTR. 32.3 g/dL (32.4-36.7); PLATELET CLUMPS FLAG 10 (0-99); PLATELET COUNT 647 10^3/uL (150-400); RED BLOOD CELL COUNT 3.88 10^6/uL (4.40-6.38); RED CELL DISTRIBUTION WIDTH 13.8 % (11.5-15.2)
[2017-06-17 04:54] LABS: INR 1.11 (0.83-1.16); PROTIME(PATIENT) 14.2 SEC (12.0-15.0)
[2017-06-17 05:02] LABS: ANION GAP 7 mEq/L (8-16); CALCIUM 9.2 mg/dL (8.5-10.4); CARBON DIOXIDE 26 mEq/l (22-31); CHLORIDE 106 mEq/L (97-110); CREATININE 0.6 mg/dL (0.7-1.3); GLOMERULAR FILTRATION RATE > 60; GLUCOSE 93 mg/dL (70-100); POTASSIUM 4.9 mEq/L (3.5-5.2); SODIUM 139 mEq/L (134-144)
[2017-06-17 05:19] LABS: APTT 38.1 SEC (23.0-38.0)
[2017-06-17 05:44] LABS: PLATELET ESTIMATE INCREASED (ADEQ)
[2017-06-17] MEDS: PANTOPRAZOLE SODIUM 40 MG TAB PO PRN ×2 (08:33→20:45)
[2017-06-17] MEDS: guaiFENesin 600 MG TAB.ER PO SCH ×2 (08:33→20:31)
[2017-06-17] MEDS: CHOLECALCIFEROL VIT D3 1,000 UNITS TAB PO SCH (08:34)
--- NOTE | 2017-06-17 14:06 | HOSPPROG ---
Hospitalist Progress Note Assessment/Plan: 46-year-old man with a history of ankylosing spondylitis and fibromyalgia with continuous opioid dependency presents with 3-6 weeks of cough. He he was diagnosed with right upper lobe pneumonia and possible abscess on admission. # right upper lobe pneumonia with possible pulmonary abscess. Patient at risk for aspiration given his history of narcotic use. He also has a remote history of positive PPD treated with INH. * Continue antibiotics to include anaerobic coverage. * Rule out TB * If TB ruled out could potentially DC on antibiotics with close follow-up. # ankylosing spondylitis and fibromyalgia with chronic pain and continuous opioid dependency. High risk for aspiration * Continue current therapy * Treat for possible aspiration # history of positive PPD status post INH therapy. Ruling out for active TB in precautions # GE reflux disease DVT prophylaxis Subjective: Patient new to me chart reviewed and discussed with Dr. Yadav. He is feeling much better today and wants to go home. Still quite diaphoretic and ill-appearing. Objective: Vital Signs Temp Pulse Resp BP Pulse Ox 36.7 C 92 16 126/65 H 98 06/17/17 11:54 06/17/17 11:54 06/17/17 11:54 06/17/17 11:54 06/17/17 11:54 Microbiology 06/15/17 12:00 - Final Sputum, Expectorated Sputum Culture - Final Strep Agalactiae Group B Maria Victoria Albicans Presumptive 06/15/17 18:15 Mycobacterial Smear (REGINALDO) - Final Other - Other Laboratory Results 06/17/17 04:20 06/17/17 04:20 06/16/17 06/17/17 06/18/17 05:59 05:59 05:59 Intake Total 6400 3850 Balance 6400 3850 PT 14.2 SEC (12.0-15.0) 06/17/17 04:20 INR 1.11 (0.83-1.16) 06/17/17 04:20 - Physical Exam Constitutional: no apparent distress, not in pain Eyes: PERRL, EOMI Ears, Nose, Mouth, Throat: moist mucous membranes Cardiovascular: regular rate and rhythym Respiratory: no respiratory distress, clear to auscultation Gastrointestinal: normoactive bowel sounds, soft, non-tender abdomen, no palpable masses Genitourinary: no bladder fullness Skin: other (Diaphoretic) Musculoskeletal: full muscle strength Neurologic: AAOx3 Psychiatric: interacting appropriately ICD10 Worksheet Patient Problems: Problems Problem Status Onset Pneumonia Acute
--- NOTE | 2017-06-17 14:28 | PCMIDPN ---
Assessment/Plan: Assessment: Right upper lobe pneumonia with abscess-prior it latent TB diagnosis with 9 months of INH many years ago. Cavitary lesion now raises questions of whether TB has recurred. Gene expert test still pending. 1st AFB smear is negative. In the meantime we will continue empiric coverage with ceftriaxone and metronidazole. Plan: 1. Continue both ceftriaxone and metronidazole. 2. Follow up on TB testing. 3. Follow clinical course and respiratory status improvement. Subjective: Patient is sitting in a chair in his hospital room. He is aggravated about having to remain in the hospital out of concerns for tuberculosis. No fevers or chills. Clinically remains improved. Objective: Ceftriaxone # 3 Metronidazole # 2 Vital Signs Temp Pulse Resp BP Pulse Ox 36.7 C 92 16 126/65 H 98 06/17/17 11:54 06/17/17 11:54 06/17/17 11:54 06/17/17 11:54 06/17/17 11:54 Microbiology 06/15/17 12:00 - Final Sputum, Expectorated Sputum Culture - Final Strep Agalactiae Group B Maria Victoria Albicans Presumptive 06/15/17 18:15 Mycobacterial Smear (REGINALDO) - Final Other - Other Laboratory Results 06/17/17 04:20 06/17/17 04:20 06/16/17 06/17/17 06/18/17 05:59 05:59 05:59 Intake Total 6400 3850 Balance 6400 3850 - Physical Exam General Appearance: WD/WN, alert, no apparent distress, non-toxic Respiratory: lungs clear, normal breath sounds, No respiratory distress Cardiac/Chest: regular rate, rhythm, No tachycardia Skin: normal color, warm/dry, No rash Neuro/Psych: alert, normal mood/affect, oriented x 3 ICD10 Worksheet Patient Problems: Problems Problem Status Onset Pneumonia Acute
--- NOTE | 2017-06-17 14:53 | SOAPPROG ---
SOAP Progress Note Assessment/Plan: Assessment/plan: * Right upper lobe cavitary masslike lesion. Query TB versus cancer. -await [facility] TB. If negative will proceed to fiberoptic bronchoscopy * Respiratory-less breathless Subjective: Patient states he is markedly improved. Less breathless, and overall feels better Objective: Vital Signs Temp Pulse Resp BP Pulse Ox 36.7 C 92 16 126/65 H 98 06/17/17 11:54 06/17/17 11:54 06/17/17 11:54 06/17/17 11:54 06/17/17 11:54 Microbiology 06/15/17 12:00 - Final Sputum, Expectorated Sputum Culture - Final Strep Agalactiae Group B Maria Victoria Albicans Presumptive 06/15/17 18:15 Mycobacterial Smear (REGINALDO) - Final Other - Other Laboratory Results 06/17/17 04:20 06/17/17 04:20 06/16/17 06/17/17 06/18/17 05:59 05:59 05:59 Intake Total 6400 3850 Balance 6400 3850 PT 14.2 SEC (12.0-15.0) 06/17/17 04:20 INR 1.11 (0.83-1.16) 06/17/17 04:20 Physical Exam - Physical Exam General Appearance: alert, no apparent distress EENT: PERRL/EOMI, normal ENT inspection Neck: non-tender, full range of motion, supple, normal inspection Respiratory: chest non-tender, lungs clear, normal breath sounds Cardiac/Chest: normal peripheral pulses, regular rate, rhythm Peripheral Pulses: 2+: carotid (R), carotid (L), femoral (R), femoral (L), dorsalis-pedis (R), dorsalis-pedis (L) Abdomen: normal bowel sounds, non-tender, soft Male Genitalia: deferred Rectal: deferred Skin: normal color, warm/dry Extremities: normal range of motion, non-tender, normal inspection, normal capillary refill Neuro/Psych: no motor/sensory deficits, alert, normal mood/affect, oriented x 3 ICD10 Worksheet Patient Problems: Problems Problem Status Onset Pneumonia Acute
[2017-06-17] MEDS ORDERED: FAMOTIDINE 20 MG TAB PO ONE (21:45)
[2017-06-18] MEDS: oxyCODONE IR 15 MG TAB PO PRN (04:46)
[2017-06-18 05:52] LABS: % IMMATURE GRANULYOCYTES 1.7 % (0.0-1.1); ABSOLUTE IMMATURE GRANULOCYTES 0.25 10^3/uL (0.00-0.10); ADD DIFF? NO; ADD MORPH? NO; ADD SCAN? NO; ATYPICAL LYMPHOCYTE FLAG 30 (0-99); FRAGMENT RBC FLAG 0 (0-99); HEMATOCRIT 33.6 % (40.0-51.0); LEFT SHIFT FLG 10 (0-99); LIPEMIA HEMOLYSIS FLAG 80 (0-99); MEAN CELL HEMOGLOBIN 28.8 pg (27.9-34.1); MEAN CELL HEMOGLOBIN CONCENTR. 32.7 g/dL (32.4-36.7); MEAN PLATELET VOLUME 9.7 fL (8.7-11.7); PLATELET CLUMPS FLAG 0 (0-99); PLATELET COUNT 627 10^3/uL (150-400); RED BLOOD CELL COUNT 3.82 10^6/uL (4.40-6.38); RED CELL DISTRIBUTION WIDTH 13.8 % (11.5-15.2)
[2017-06-18 06:05] LABS: ANION GAP 7 mEq/L (8-16); CALCIUM 9.1 mg/dL (8.5-10.4); CARBON DIOXIDE 25 mEq/l (22-31); CHLORIDE 106 mEq/L (97-110); CREATININE 0.6 mg/dL (0.7-1.3); GLOMERULAR FILTRATION RATE > 60; GLUCOSE 90 mg/dL (70-100); POTASSIUM 4.4 mEq/L (3.5-5.2); SODIUM 138 mEq/L (134-144)
[2017-06-18] MEDS: guaiFENesin 600 MG TAB.ER PO SCH (08:50)
[2017-06-18] MEDS: CHOLECALCIFEROL VIT D3 1,000 UNITS TAB PO SCH (08:50)
[2017-06-18] MEDS: PANTOPRAZOLE SODIUM 40 MG TAB PO PRN (08:50)
[2017-06-18] MEDS: HYDROCODONE/APAP 10/325 TAB PO PRN (08:50)
[2017-06-18 08:56] VITALS: RESP 18; O2SAT 96
[2017-06-18 12:08] VITALS: BP 121/76; PULSE 93; TEMP 97.6
--- NOTE | 2017-06-18 14:49 | GDS ---
[f rep st] DISCHARGE SUMMARY DIAGNOSES: 1. Pneumonia, right upper lobe cavitary lesion at risk for aspiration. 2. History of positive PPD, status post 6 months of INH, ruled out for active tuberculosis. 3. Ankylosing spondylitis and fibromyalgia with chronic pain and continuous opioid dependency. 4. Gastroesophageal reflux disease. CONSULTATIONS: Include infectious disease, Dr. Ana M Ibanez, and pulmonology, Dr. Ethan Navarro. PROCEDURES DONE: Chest CT: Severe pneumonia right upper lobe with possible abscess. HOSPITAL COURSE: The patient is a 46-year-old, who was admitted on June 15, with several weeks o f a cough, associated with shortness of breath and myalgias. He also had fevers up to 103. On admis srinivas, he had an abnormal chest x-ray and proceeded to have a CT scan done with the above findings. H e was placed on antibiotics to include anaerobic coverage. Over the course of his hospitalization, h e improved markedly, and was saturating normally on room air. He ruled out for active TB, and is at risk for aspiration with a possible abscess, he will be placed on 4 weeks of antibiotic therapy and f ollow up with Dr. Ana M Ibanez as an outpatient. CONDITION ON DISCHARGE: He is afebrile, heart rate 90, blood pressure 122/73. He is 96% on room air . DISCHARGE MEDICATIONS: Please see discharge medication form. FOLLOWUP: He will follow up with Dr. Ana M Ibanez in 1 week. New medications include clindamycin 300 mg 3 times a day for 4 weeks. Total time spent with patient on day of discharge and coordination of care is 35 minutes. /[id number]/MODL
--- NOTE | 2017-06-18 15:12 | ASDISCHSUM ---
Discharge Information Plan Status:Home with No Needs Medically Cleared to Leave:06/18/2017 Discharge Date:06/18/2017 12:46 PM CM D/C Disposition:Home, Routine, Self-Care ADT D/C Disposition:Home, Routine, Self-Care Projected Discharge Date:06/18/2017 12:46 PM Transportation at D/C:Family Discharge Delay Reason: Follow-Up Date:06/18/2017 12:46 PM Discharge Slot: Final Diagnosis: Placement Information Patient Contact Information Contact Name:LINDENCORA Relationship:Nephew Address: Work Phone: City: [facility] Phone: State/Zip Code: Email: Financial Information Financial Class: Primary Plan Desc:MEDICARE INPATIENT Primary Plan Number:[id number] Secondary Plan Desc:[employer] [place] Secondary Plan Number:[id number] Assessment Information [facility] Initial CM Assessment Living Arrangements What is your living Answers: Alone arrangement? Who do you live with? Type Of Residence What kind of residence do Answers: House you live in? Discharge Plan Comments Coordination Status Comments Notes: Chart reviewed, pt is a 46 y/o man admitted w/ pneumonia. CM spoke w/ SABINA Yoo. Pt will most likely discharge independent when he is medically stable w/ supportive family in the community. CM available for changes. Date Signed: 06/16/2017 11:53 AM Electronically Signed By:HOANG Zee Intervention Information
== END 2017-06-18 12:46 | disposition home or self-care (01) | DRG 178 ==
LOC: F2W 09:05 → F3E 06-16 23:40
PROVIDERS: ADMIT Family Medicine; ATTEND Internal Medicine
DX: J85.1 Abscess of lung with pneumonia (principal); F11.20 Opioid dependence, uncomplicated; M45.9 Ankylosing spondylitis of unspecified sites in spine; M79.7 Fibromyalgia; G89.29 Other chronic pain; K21.9 Gastro-esophageal reflux disease without esophagitis; M81.0 Age-related osteoporosis without current pathological fracture; E86.0 Dehydration; Z87.891 Personal history of nicotine dependence
CPT/HCPCS: 83516-90; 83520-90; 96365; 97161-GP; G8978-GP-CI; G8979-GP-CI; J0696; J1170; J1650; J2405; J2543; J3370; Q9967

== ENCOUNTER → 2017-07-21 | Outpatient (CLI) | payer OTHER, MEDICAID | LOC: CIMAGING 11:15 | PROVIDERS: ATTEND Internal Medicine | DX: J18.9 Pneumonia, unspecified organism (principal); R59.0 Localized enlarged lymph nodes; R91.1 Solitary pulmonary nodule | CPT/HCPCS: 71250-PO ==

== ENCOUNTER → 2017-09-12 | Outpatient (CLI) | payer OTHER, MEDICAID | LOC: BMCIMAGING 11:04 | PROVIDERS: ATTEND Family Medicine | DX: R91.8 Other nonspecific abnormal finding of lung field (principal); M54.6 Pain in thoracic spine; M51.34 Other intervertebral disc degeneration, thoracic region; R93.7 Abnormal findings on diagnostic imaging of other parts of musculoskeletal system ==

== ENCOUNTER 2018-03-07 10:44 | Emergency (ER) | payer OTHER, MEDICAID ==
--- NOTE | 2018-03-07 10:56 | EDPHY ---
H & P Stated Complaint: Low back pain from sitting wrong on chair yesterday. Time Seen by Provider: 03/07/18 10:49 HPI/ROS: 47 yo M with hx of anklylosing spondylitis, fibromyalgia, and chronic pain on narcotics and benzodiazepines chcf, presents today stating he is having increased back pain since sitting on a bench of a picnic table that was unstable , it dropped and he had both a deceleration injury as well as hitting his back directly on the edge of the picnic table. No loss of bowel of bladder, no numbness or tingling in extremities. No difficulty with walking or controlling his dog on leash. Review of systems as per HPI General no fever no chills no weakness HEENT no eye pain no eye discharge. No eye redness, no sore throat Respiratory no cough, no shortness of breath Cardiac no chest pain, no peripheral edema GI no abdominal pain, no diarrhea, no constipation, no nausea, no vomiting no flank pain, no hematuria, no dysuria Musculoskeletal positive myalgias, no joint pain Heme no easy bruising, no easy bleeding Endo no polyuria, no polydipsia Skin no rashes, no pruritus Neuro no syncope, no dizziness, no headaches Psych is no suicidal ideation, no homicidal ideation Source: Patient Exam Limitations: No limitations - Personal History Current Tetanus Diphtheria and Acellular Pertussis (TDAP): Yes Tetanus Vaccine Date: within 10 years - Medical/Surgical History Hx Asthma: No Hx Chronic Respiratory Disease: No Hx Diabetes: No Hx Cardiac Disease: No Hx Renal Disease: No Hx Cirrhosis: No Hx Alcoholism: No Hx HIV/AIDS: No Hx Splenectomy or Spleen Trauma: No Other PMH: PMHx: osteoporosis, vancolosing spondilitis, gerd, fibromyalgia, chronic pain. PSHx: hernia, adenoids, tonsillectomy, deviated septum repair, eyelid surgery - Family History Significant Family History: No pertinent family hx - Social History Smoking Status: Former smoker Alcohol Use: None Drug Use: None, Other (Patient is on chronically prescribed narcotics) - Physical Exam Exam: 47-year-old male alert and oriented no acute distress nontoxic appearance, afebrile HEENT atraumatic normocephalic, extraocular muscles intact, anicteric Oropharynx negative for erythema negative exudate, tolerating her own secretions Neck supple no meningismus Lungs clear to auscultation bilaterally Heart regular rate and rhythm without murmur rub or gallop Abdomen nondistended normoactive bowel sounds soft nontender Back no CVA tenderness, no step-offs, positive tenderness along thoracic and lumbar spine No swelling, no ecchymosis, negative straight leg raise, gait intact, DTRs present bilateral knees Extremities no cyanosis clubbing or edema Neuro alert and oriented, no focal deficits Constitutional: Initial Vital Signs Temperature (C) 36.9 C 03/07/18 10:50 Heart Rate 88 03/07/18 10:50 Respiratory Rate 18 03/07/18 10:50 Blood Pressure 147/108 H 03/07/18 10:50 O2 Sat (%) 96 03/07/18 10:50 O2 Delivery Mode Room Air Allergies/Adverse Reactions: duloxetine HCl [From Cymbalta] Allergy (Verified 03/07/18 10:51) Pt reports "i get aggressive" etanercept [From Enbrel] Allergy (Verified 03/07/18 10:51) Pt reports hives, SOB Home Medications: Medication Instructions Recorded Cyanocobalamin [Vitamin B12 06/15/17 1000MCG/ML (*)] Diazepam [Valium 10 MG (*)] 06/15/17 Esomeprazole Mag Trihydrate 06/15/17 [Nexium] HYDROcodone/APAP [[place] 06/15/17 (*)] celeCOXIB [Celebrex (*)] 06/15/17 oxyCODONE IR [Oxycodone Ir (*)] 06/15/17 Fosamax 35 MG 03/07/18 Medical Decision Making - Diagnostics Imaging Results: Imaging Impressions Thoracic Spine X-Ray 03/07/18 11:17 Impression: No acute osseous abnormality seen about the thoracic spine. Lumbar Spine X-Ray 03/07/18 11:18 Impression: 1. No acute abnormality seen about the lumbar spine. 2. Stable mild depression superior central endplate of T12 and L5. 3. Stable ankylosis of the SI joints. ED Course/Re-evaluation: Patient seen and evaluated for back pain after an accident. No fall. Thoracic spine and lumbar spine x-rays no acute pathology Impression Thoracic and lumbar spine contusion Plan Discharge home Continue current medication regimen Follow-up primary care physician Differential Diagnosis: Differential diagnosis considered but not limited to: Thoracic spine fracture lumbar spine fracture lumbar strain, thoracic strain Departure - Departure Disposition: Home, Routine, Self-Care Clinical Impression: Contusion of back Condition: Good Instructions: Contusion in Adults (ED), Back Pain (ED) Referrals: NONE *PRIMARY CARE P,. [Primary Care Provider] - As per Instructions
[2018-03-07 13:05] VITALS: BP 156/100
== END 2018-03-07 13:05 | disposition home or self-care (01) ==
LOC: CED 10:44
DX: S30.0XXA Contusion of lower back and pelvis, initial encounter (principal); S20.229A Contusion of unspecified back wall of thorax, initial encounter; Z87.891 Personal history of nicotine dependence; W20.8XXA Other cause of strike by thrown, projected or falling object, initial encounter; Y99.8 Other external cause status; Y93.89 Activity, other specified
CPT/HCPCS: 72100-PO

== ENCOUNTER 2018-05-24 18:18 | Emergency (ER) | payer OTHER, MEDICAID ==
[2018-05-24] MEDS ORDERED: NS 1,000 ML IV ONE (18:56)
[2018-05-24] MEDS ORDERED: AZITHROMYCIN 250 MG TAB PO ONE (20:05)
--- NOTE | 2018-05-24 20:07 | EDPHY ---
H & P Stated Complaint: DX PNA today. Reports feeling "delirious and dehydrated". Time Seen by Provider: 05/24/18 18:31 HPI/ROS: This patient has had a cough over the past few weeks that he describes as a dry hacking cough. He had to have outpatient imaging of his kidneys imaging center in [place] today-[facility] and he called his primary care physician, - family physician in [place] to ask for a chest x-ray as well concerned that he might have pneumonia. He received a call this evening confirming that he had left lower lobe pneumonia. His doctor said that he called in a antibiotic but he went to [facility] that was not ready yet. The patient reports that he felt fatigued and subjective feeling of dehydration so he came in for to the emergency department, arriving by private car. ROS: Constitutional: He describes subjective fevers and fatigue. He took Celebrex earlier today that he takes for ankylosing spondylitis with resolution of his fever prior to arrival. No rigors. HEENT: Mild sore throat earlier in the week that has since improved. He also ear pain earlier in the week on the left side that is now resolved. No other complaints new line pulmonary: He describes pleuritic pain in the left side with a deep breath or coughing. He states that the intensity the pain is moderate. Cardiovascular: Reports mild lightheadedness. No heart palpitations or lower extremity swelling. GI: Mild intermittent crampy discomfort but no haile pain. No nausea vomiting. No diarrhea. : No complaints Endocrine: No complaints Integumentary: He reports diaphoresis intermittently masses"fevers breaking" 10 point review of symptoms is performed and otherwise negative with exception of pertinent positives and negatives listed in HPI and ROS Source: Patient Exam Limitations: No limitations - Personal History Current Tetanus Diphtheria and Acellular Pertussis (TDAP): Yes Tetanus Vaccine Date: within 10 years - Medical/Surgical History PMH: Ankylosing spondylitis on chronic opiates and benzos Hx Asthma: No Hx Chronic Respiratory Disease: No Hx Diabetes: No Hx Cardiac Disease: No Hx Renal Disease: No Hx Cirrhosis: No Hx Alcoholism: No Hx HIV/AIDS: No Hx Splenectomy or Spleen Trauma: No Other PMH: PMHx: osteoporosis, vancolosing spondilitis, gerd, fibromyalgia, chronic pain. PSHx: hernia, adenoids, tonsillectomy, deviated septum repair, eyelid surgery - Family History Significant Family History: No pertinent family hx - Social History Smoking Status: Former smoker Alcohol Use: Rarely Drug Use: None, Marijuana (Occasional but none since he has been ill) - Physical Exam Exam: vital signs are normal tonight exception of and mild hypertension 150/99 and an O2 sat of 95% on room air General Appearance: Alert, no distress. Eyes: Pupils equal and round no pallor or injection. ENT, Mouth: Mucous membranes moist. Oropharynx is clear. Ears: External canals and TMs clear bilaterally Respiratory: Mild rales at the left base. Otherwise clear to auscultation bilaterally. He has intermittent dry coughing. Cardiovascular: Regular rate and rhythm. No murmur gallop or rub. Gastrointestinal: Abdomen is soft and nontender, no masses, bowel sounds normal. Neurological: GCS 15. No focal deficits. Skin: Warm and dry, no rashes. Musculoskeletal: Neck is supple nontender. Extremities are symmetrical, full range of motion. Psychiatric: Slightly flat affect otherwise normal mood. Pleasant and cooperative. DIFFERENTIAL DIAGNOSIS: After history and physical exam differential diagnosis was considered for [ ] Constitutional: Initial Vital Signs Temperature (C) 36.7 C 05/24/18 18:24 Heart Rate 91 05/24/18 18:24 Respiratory Rate 16 05/24/18 18:24 Blood Pressure 150/99 H 05/24/18 18:24 O2 Sat (%) 95 05/24/18 18:24 O2 Delivery Mode Room Air Allergies/Adverse Reactions: duloxetine HCl [From Cymbalta] Allergy (Verified 05/24/18 18:28) Pt reports "i get aggressive" etanercept [From Enbrel] Allergy (Verified 05/24/18 18:28) Pt reports hives, SOB Home Medications: Medication Instructions Recorded Cyanocobalamin [Vitamin B12 06/15/17 1000MCG/ML (*)] Diazepam [Valium 10 MG (*)] 06/15/17 Esomeprazole Mag Trihydrate 06/15/17 [Nexium] HYDROcodone/APAP [[place] 06/15/17 (*)] celeCOXIB [Celebrex (*)] 06/15/17 oxyCODONE IR [Oxycodone Ir (*)] 10/05/17 Azithromycin [Zithromax] 250 mg PO DAILY #4 tab 05/24/18 Medical Decision Making - Diagnostics EKG Interpretation: 12 lead EKG performed at 7:04 p.m. Indication chest pain Reveals sinus rhythm at 89 Intervals: Normal throughout [place]: Normal throughout ST segments: Normal throughout Overall assessment normal EKG Imaging Results: The patient declined a chest x-ray due to having a chest x-ray earlier in the day an outlying facility. ED Course/Re-evaluation: IV normal saline bolus Blood cultures drawn and sent Rocephin 1 g IV zithromax 500 mg PO Discussion: Patient here appearing clinically well without sepsis but with findings consistent with left lower lobe [id number]-[id number]. I think that he does not have a fever due to taking Celebrex prior to arrival. Will treat him with Zithromax as an outpatient final his primary care physician. He understands need to return emergency department should he develop worsening symptoms despite the treatment plan. - Data Points Laboratory Results: POC CBC [place] [id number]. H&H and platelets are normal POC Basic metabolic panel is reviewed and normal Blood cultures are pending Medications Given: Discontinued Medications Sodium Chloride (Ns) 1,000 mls @ 0 mls/hr IV ONCE ONE; Wide Open PRN Reason: Protocol Stop: 05/24/18 18:57 Last Admin: 05/24/18 19:21 Dose: 1,000 mls Ceftriaxone Sodium/Dextrose (Rocephin 1 Gm (Premix)) 50 mls @ 100 mls/hr IV EDNOW ONE PRN Reason: Protocol Stop: 05/24/18 19:27 Last Admin: 05/24/18 19:22 Dose: 50 mls Point of Care Test Results: CBC CBC Collection Date 05/24/18 CBC Collection Time 19:10 WBC 14.8 RBC 4.5 HGB 12.0 HCT 37.5 PLT 664 Neut # 10.9 Neut 73.8 LYMPH # 2.2 LYMPH 14.8 Other WBC # 1.7 Other WBC 11.4 MCV 83.3 Departure - Departure Disposition: Home, Routine, Self-Care Clinical Impression: Community acquired pneumonia Qualifiers: Laterality: left Lung location: lower lobe of lung Qualified Code(s): J18.1 - Lobar pneumonia, unspecified organism Condition: Good Instructions: Community Acquired Pneumonia (ED) Additional Instructions: Diagnosis: Community-acquired pneumonia Plan: Humidifier Continue with Celebrex and Tylenol for fevers or pain if needed Zithromax antibiotic as prescribed next dose tomorrow Continue Mucinex Friend to thump on your left lower lung field for 5 min or so as demonstrated daily of possible. Follow up with primary care physician for recheck in 3-7 days Return for any significant worsening of symptoms despite the treatment plan to the emergency department Referrals: Shawn Feng MD [Primary Care Provider] - As per Instructions
--- NOTE | 2018-05-24 20:22 | CPEKG ---
Test Reason : OPEN Blood Pressure : / mmHG Vent. Rate : 089 BPM Atrial Rate : 089 BPM P-R Int : 134 ms QRS Dur : 100 ms QT Int : 377 ms P-R-T Axes : -05 -09 060 degrees QTc Int : 459 ms Sinus rhythm Confirmed by Shawn Hopper ([id number]) on 05/24/2018 8:21:34 PM Referred By: Confirmed By:Shawn Hopper
[2018-05-24 20:28] VITALS: BP 150/93
== END 2018-05-24 20:25 | disposition home or self-care (01) ==
LOC: CED 18:18
DX: J18.1 Lobar pneumonia, unspecified organism (principal); E86.9 Volume depletion, unspecified; Z87.891 Personal history of nicotine dependence
CPT/HCPCS: 93005; 96365; 99284; J0696

== ENCOUNTER 2018-10-09 15:13 | Emergency (ER) | payer OTHER, MEDICAID ==
[2018-10-09] MEDS ORDERED: CIPROFLOXACIN HCL/DEXAMETH 7.5 ML OTIC DROPS LEFTEAR ONE (15:38)
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
[2018-10-09 16:35] VITALS: BP 142/96
== END 2018-10-09 16:30 | disposition home or self-care (01) ==
LOC: CED 15:13
DX: S09.90XA Unspecified injury of head, initial encounter (principal); H66.92 Otitis media, unspecified, left ear; Y04.8XXA Assault by other bodily force, initial encounter; Y92.9 Unspecified place or not applicable; Y93.9 Activity, unspecified; Y99.9 Unspecified external cause status
CPT/HCPCS: 70450-PO; 99284-ER

== ENCOUNTER 2019-01-11 10:13 | Emergency (ER) | payer OTHER, MEDICAID ==
[2019-01-11] MEDS ORDERED: NS 2,000 ML IV ONE (10:41)
[2019-01-11] MEDS ORDERED: ONDANSETRON 4 MG/2 ML VIAL IVP ONE (10:47)
--- NOTE | 2019-01-11 11:03 | EDPHY ---
H & P Stated Complaint: NVD since Monday Time Seen by Provider: 01/11/19 10:25 HPI/ROS: This patient complains of diarrhea that started on Monday, 4 days prior to arrival. Starting Monday developed both vomiting and diarrhea described as watery brown in color both emesis and diarrhea with no coffee-ground emesis or dark tarry stools and no bright red blood from either source. He describes intermittent diffuse crampy abdominal pain in addition that is moderate to severe at times but currently mild. He has had ongoing vomiting and diarrhea since that time but is able tolerate small sips of fluids. In terms of food he has only been able to tolerate small amounts of popcorn and pretzels intermittently. He has been unable to take his opiate narcotics-oxycodone IR 15 mg three times daily and hydrocodone 10 mg 4 times a day. He takes these for ankylosing spondylitis pain in his spine. He reports currently his chronic spine pain is 7/10 intensity. He has associated lightheadedness with the symptoms and denies any other associated symptoms. ROS: Constitutional no fevers or chills. HEENT: No recent URI symptoms Pulmonary: No cough or shortness of breath Cardiovascular: No chest pain. No heart palpitations. GI: No focal pain. : No dysuria. No flank pain. No hematuria. No testicle pain. Integumentary: No skin rash Neuro: No numbness tingling or other acute neuro symptoms. 10 point review of symptoms is performed and otherwise negative with exception of pertinent positives and negatives listed in HPI and ROS Source: Patient Exam Limitations: No limitations - Personal History Tetanus Vaccine Date: within 10 years - Medical/Surgical History Hx Asthma: No Hx Chronic Respiratory Disease: No Hx Diabetes: No Hx Cardiac Disease: No Hx Renal Disease: No Hx Cirrhosis: No Hx Alcoholism: No Hx HIV/AIDS: No Hx Splenectomy or Spleen Trauma: No Other PMH: PMHx: osteoporosis, ankylosing spondilitis, gerd, fibromyalgia, chronic pain. PSHx: hernia, adenoids, tonsillectomy, deviated septum repair, eyelid surgery - Social History Smoking Status: Former smoker Alcohol Use: None Drug Use: None Additional Social History: He lives alone and has food provided by [employer]. He lives in [place]. - Physical Exam Exam: Vital signs normal exception of pulse of 106 blood pressure 145/100 General Appearance: Alert, no distress. Eyes: Pupils equal and round no pallor or injection. ENT, Mouth: Mucous membranes dry. Respiratory: There are no retractions, lungs are clear to auscultation. Cardiovascular: Tachycardic with no murmur gallop or rub Gastrointestinal: Normoactive, soft, nontender Neurological: GCS 15 with no focal deficits. Skin: Warm and dry, no rashes. Extremities are symmetrical, full range of motion. Psychiatric: Patient is oriented X 3, there is no agitation. DIFFERENTIAL DIAGNOSIS: After history and physical exam differential diagnosis was considered for viral gastroenteritis, dehydration, opiate withdrawal, pancreatitis, hepatitis, metabolic disarray, prerenal azotemia Constitutional: Initial Vital Signs Temperature (C) 36.8 C 01/11/19 10:21 Heart Rate 106 H 01/11/19 10:21 Respiratory Rate 16 01/11/19 10:21 Blood Pressure 145/100 H 01/11/19 10:21 O2 Sat (%) 96 01/11/19 10:21 O2 Delivery Mode Room Air Allergies/Adverse Reactions: duloxetine HCl [From Cymbalta] Allergy (Verified 01/11/19 10:24) Pt reports "i get aggressive" etanercept [From Enbrel] Allergy (Verified 01/11/19 10:24) Pt reports hives, SOB Home Medications: Medication Instructions Recorded Cyanocobalamin [Vitamin B12 06/15/17 1000MCG/ML (*)] Diazepam [Valium 10 MG (*)] 06/15/17 Esomeprazole Mag Trihydrate 06/15/17 [Nexium] HYDROcodone/APAP [[place] 06/15/17 10 (*)] celeCOXIB [Celebrex (*)] 06/15/17 oxyCODONE IR [Oxycodone Ir (*)] 06/15/17 Ondansetron Odt [Zofran Odt] 4 - 8 mg PO Q4PRN PRN #4 tab 01/11/19 Medical Decision Making ED Course/Re-evaluation: IV normal saline bolus Zofran IV Morphine After checking creatinine-normal Toradol 15 mg IV At 11:45 a.m. Patient reports that this pain is significantly improved after treatment his nausea is improved but still present. He also reports acid reflux symptoms that he attributes to not taking his Nexium. He denies any chest pain is simply reports that he is having a feeling of acid reflux. Patient is then treated with Reglan and Benadryl IV and Maalox p.o. With relief. Labs reveal leukocytosis, no metabolic abnormalities or elevation of LFTs in this amylase is normal. Discussion: This patient presents with vomiting and diarrhea. I suspect a viral etiology as the cause of initial illness. After not being able to take his opiates you may also be suffering some opiate withdrawal symptoms. I counseled regarding this. Workup ruled out pancreatitis, hepatitis or other red flag findings. I feel that his leukocytosis is reactive. He has a benign belly exam currently. Will plan to send him home on Zofran, Light diet until he feels improved follow up with primary care physician. He understands the need to return emergency department should he develop worsening of symptoms despite the treatment plan. - Data Points Medications Given: Discontinued Medications Al Hydroxide/Mg Hydroxide (Maalox Susp) 30 ml PO EDNOW ONE Stop: 01/11/19 11:52 Last Admin: 01/11/19 11:55 Dose: 30 ml Diphenhydramine HCl (Benadryl Injection) 25 mg IVP EDNOW ONE Stop: 01/11/19 11:49 Last Admin: 01/11/19 11:55 Dose: 25 mg Sodium Chloride (Ns) 2,000 mls @ 0 mls/hr IV ONCE ONE; Wide Open PRN Reason: Protocol Stop: 01/11/19 10:42 Last Admin: 01/11/19 10:54 Dose: 2,000 mls Ketorolac Tromethamine (Toradol) 15 mg IVP EDNOW ONE Stop: 01/11/19 11:13 Last Admin: 01/11/19 11:19 Dose: 15 mg Metoclopramide HCl (Reglan Injection) 10 mg IVP EDNOW ONE Stop: 01/11/19 11:48 Last Admin: 01/11/19 11:55 Dose: 10 mg Morphine Sulfate (Morphine) 4 mg IVP EDNOW ONE Stop: 01/11/19 10:43 Last Admin: 01/11/19 10:55 Dose: 4 mg Ondansetron HCl (Zofran) 4 mg IVP EDNOW ONE Stop: 01/11/19 10:48 Last Admin: 01/11/19 10:54 Dose: 4 mg Point of Care Test Results: CBC CBC Collection Date 01/11/19 CBC Collection Time 10:45 WBC 14.66 RBC 5.38 HGB 14.8 HCT 44.1 PLT 473 Neut # 11.28 Neut 76.9 LYMPH # 1.86 LYMPH 12.7 MCV 82.0 Chemistry 01/11/19 01/11/19 11:02 10:49 POC Sodium 138 mEq/L mEq/L (135-145) POC Potassium 3.5 mEq/L mEq/L (3.3-5.0) POC Chloride 103.0 mEq/L mEq/L (97-110) POC Total CO2 26 mEq/L mEq/L (22-31) POC BUN 14 mg/dL mg/dL (7-23) POC Creatinine 0.5 mg/dL L mg/dL (0.7-1.3) POC Glucose 120 mg/dL H mg/dL (70-100) POC Calcium 10.4 mg/dL mg/dL (8.5-10.4) POC Total Bilirubin 0.5 mg/dL mg/dL (0.1-1.4) POC GGT 42 IU/L IU/L (5-65) POC AST 20 IU/L IU/L (17-59) POC ALT 15 IU/L L IU/L (21-72) POC Alk Phosphatase 108 IU/L IU/L (38-126) POC Total Protein 8.5 g/dL H g/dL (6.3-8.2) POC Albumin 3.8 g/dL g/dL (3.5-5.0) POC Amylase 21 IU/L L IU/L (30-110) Departure - Departure Disposition: Home, Routine, Self-Care Clinical Impression: Gastroenteritis, Dehydration, Opiate withdrawal Condition: Fair Instructions: Gastroenteritis (ED) Additional Instructions: Diagnosis: Gastroenteritis 2. Dehydration 3. Opiate withdrawal Plan: Drink plenty of fluids Light diet to feel improved Zofran for nausea vomiting if needed Imodium if needed for diarrhea. Resume your normal medications. Follow up with primary care physician for any ongoing symptoms. Return emergency department for any significant worsening despite the treatment plan Referrals: Shawn Feng MD [Primary Care Provider] - As per Instructions Prescriptions: Ondansetron Odt [Zofran Odt] 4 - 8 mg PO Q4PRN PRN #4 tab PRN Reason: Vomiting
[2019-01-11] MEDS ORDERED: KETOROLAC 15 MG/1 ML SDV IVP ONE (11:12)
[2019-01-11] MEDS ORDERED: METOCLOPRAMIDE 10 MG/2 ML VIAL IVP ONE (11:47)
[2019-01-11] MEDS ORDERED: MAG HYDROX/AL HYDROX/SIMETH 30 ML UDCUP PO ONE (11:51)
[2019-01-11 12:39] VITALS: BP 130/72
== END 2019-01-11 12:37 | disposition home or self-care (01) ==
LOC: CED 10:13
DX: K52.9 Noninfective gastroenteritis and colitis, unspecified (principal); E86.0 Dehydration; F11.23 Opioid dependence with withdrawal
CPT/HCPCS: 96361; 96374; 96375; 99284; J1200; J1885; J2270; J2405; J2765; 80048-ER; 80076-ER; 82150-ER; 85025-QW-ER; 85379-QW-ER